=== PATIENT | female | born 1935 | race Caucasian/White ===

== ENCOUNTER → 2016-04-24 | Outpatient (CLI) | payer MEDICARE | LOC: M ONCR 14:07 | PROVIDERS: ATTEND Radiology Radiation Oncology | DX: C50.111 Malignant neoplasm of central portion of right female breast (principal) ==

== ENCOUNTER → 2016-04-29 | Outpatient (CLI) | payer MEDICARE ==
--- NOTE | 2016-04-29 12:04 | REP ---
WHOLE BODY RADIONUCLIDE BONE SCAN: History: Breast carcinoma. Follow-up. Comparison three-phase bone scan is from June 19, 2015 with imaging of the knees. Technique: 21.6 mCi technetium 99m MDP is injected and standard whole body bone scan imaging is acquired. Scintigraphic findings: There is a diffuse pattern of increased uptake in the soft tissues of the right breast in this patient with history of breast cancer treated with radiation therapy. There is arthritic uptake in each wrist. There is arthritic uptake in the right knee and in both mid foot joints. A left knee arthroplasty is visible. There is uptake in bilateral kidneys and some degenerative disc uptake is seen in the thoracic and lumbar spine. There is no evidence to suggest skeletal metastatic disease. Impression: No evidence of bony metastatic disease. Signed by Christian Steel MD 04/29/2016 01:12 P
== END ==
LOC: M RAD 08:08
PROVIDERS: ATTEND Radiology Radiation Oncology
DX: C50.919 Malignant neoplasm of unspecified site of unspecified female breast (principal); R07.82 Intercostal pain
CPT/HCPCS: 78306; A9503

== ENCOUNTER → 2016-07-17 | Outpatient (CLI) | payer MEDICARE ==
--- NOTE | 2016-07-24 06:02 | RADONC ---
RADIATION ONCOLOGY FOLLOWUP NOTE DATE: 07/17/2016 CHART NUMBER: [id number]. DIAGNOSIS: Right breast cancer. STAGE: IA, [id number]. ECOG PERFORMANCE STATUS: 0. FOLLOWUP NOTE: Ms. 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 The patient presents today reporting that generally she is doing well with no complaints at this time related to her radiation therapy. She reports that she did have some type of stomach flu and recently. REVIEW OF SYSTEMS: The patient's review of systems is noncontributory. Denies nausea, vomiting, fevers, chills, night sweats, diplopia, headaches, anxiety or depression, anorexia, weight loss, visual disturbances, chest pain, urinary or bowel difficulties, bone pain, or neurological problems. PHYSICAL EXAMINATION: The patient is a well-developed, well-nourished, 81-year-old white female in no acute distress. HEENT exam is normocephalic, atraumatic. Extraocular movements are intact. There is no palpable cervical, supraclavicular, infraclavicular, axillary, or inguinal lymphadenopathy present. Lungs are clear to auscultation and percussion. Heart has a regular rate and rhythm. Abdomen is benign with no hepatosplenomegaly, masses, or tenderness. Breast examination reveals no masses or discharge bilaterally. Skeletal examination reveals no tenderness to pressure or percussion of the bony skeleton. Extremities reveal no clubbing, cyanosis, or edema. Neurologic exam is grossly intact, as is the remainder of the physical examination. ASSESSMENT: The patient is clinically JEOVANNY at this time and will be seen by us again in 6 months for further followup. She will also continue to be followed by her other physicians as well. cc: MD Abrahan Silverman MD Laverne VanDeWall, DO
== END ==
LOC: M ONCR 14:40
PROVIDERS: ATTEND Radiology Radiation Oncology
DX: C50.111 Malignant neoplasm of central portion of right female breast (principal)

== ENCOUNTER → 2016-08-05 | Outpatient (CLI) | payer MEDICARE ==
--- NOTE | 2016-08-05 10:22 | REP ---
Digital screening bilateral mammography with CAD: History: Personal history of breast carcinoma right breast treated with lumpectomy and radiation therapy. Status post benign stereotactic biopsy left breast. Comparison is made with the prior mammograms, the most recent of which is from June 12, 2015. Findings: Post-treatment changes are seen in the right breast with diffuse stromal thickening and diffuse skin thickening post radiation and surgery. There is an area of postoperative fibrosis at approximately 12 o'clock in the right breast. There is vascular calcification and scattered benign calcifications on the right. On the left, there is a needle biopsy marker clip projecting also at approximately 12 o'clock. The previously noted microcalcific grouping is no longer apparent. Vascular calcification is seen. No suspicious left breast abnormality is observed. Impression: BIRADS category II benign bilateral breast imaging. Post-treatment changes are noted on the right. Repeat screening mammography recommended in 1 year. BI-RADS/ACR category 2 mammogram. Benign finding(s). Routine annual screening mammography (for women over age 40). This mammogram was interpreted with the aid of an FDA-approved computer-aided detection system. The patient states she had a clinical breast exam in June 2016 The patient letter being requested is M2. Signed by Christian Steel MD 08/05/2016 12:08 P
== END ==
LOC: M RAD 08:23
PROVIDERS: ATTEND Radiology Radiation Oncology
DX: Z12.31 Encounter for screening mammogram for malignant neoplasm of breast (principal); Z85.3 Personal history of malignant neoplasm of breast

== ENCOUNTER → 2017-01-15 | Outpatient (CLI) | payer MEDICARE ==
--- NOTE | 2017-01-16 10:01 | RADONC ---
RADIATION ONCOLOGY FOLLOWUP NOTE DATE: 01/15/2017 CHART NUMBER: [id number] DIAGNOSIS: Right breast cancer. STAGE: IA, [id number]. ECOG PERFORMANCE STATUS: 0 FOLLOWUP NOTE: Ms. 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 The patient presents today reporting that she is doing quite well with no complaints at this time related to her radiation therapy or disease. She has no breast or bone pain. REVIEW OF SYSTEMS: The patient's review of systems is noncontributory. She denies nausea, vomiting, fevers, chills, night sweats, diplopia, headaches, anxiety or depression, anorexia, weight loss, visual disturbances, chest pain, urinary or bowel difficulties, bone pain, or neurological problems. PHYSICAL EXAMINATION: The patient is a well-developed, well-nourished white female in no acute distress. HEENT exam is normocephalic, atraumatic. Extraocular movements are intact. There is no palpable cervical, supraclavicular, infraclavicular, axillary, or inguinal lymphadenopathy present. Lungs are clear to auscultation and percussion. Heart has a regular rate and rhythm. Abdomen is benign with no hepatosplenomegaly, masses, or tenderness. Breast examination reveals no masses or discharge bilaterally. Skeletal examination reveals no tenderness to pressure or percussion of the bony skeleton. Extremities reveal no clubbing, cyanosis, or edema. Neurologic exam is grossly intact, as is the remainder of the physical examination. ASSESSMENT: The patient is clinically JEOVANNY at this time and will be seen by me again in 6 months for further followup. She will also continue to be followed by her other physicians as well. cc: Radha Pollock MD, FACP MD Ashley Samuels DO
== END ==
LOC: M ONCR 14:07
PROVIDERS: ATTEND Radiology Radiation Oncology
DX: C50.111 Malignant neoplasm of central portion of right female breast (principal)

== ENCOUNTER → 2017-08-01 | Outpatient (CLI) | payer MEDICARE | LOC: M ONCR 14:29 | DX: C50.111 Malignant neoplasm of central portion of right female breast (principal) | CPT/HCPCS: G0463 ==

== ENCOUNTER → 2018-04-01 | Outpatient (CLI) | payer MEDICARE | LOC: M ONCR 14:10 | DX: C50.111 Malignant neoplasm of central portion of right female breast (principal) | CPT/HCPCS: G0463 ==

== ENCOUNTER → 2018-09-02 | Outpatient (CLI) | payer MEDICARE ==
--- NOTE | 2018-09-03 08:18 | RADONC ---
RADIATION ONCOLOGY FOLLOWUP NOTE DATE: 09/02/2018 CHART NUMBER: [id number] DIAGNOSIS: Right breast cancer. STAGE: I A, [id number]. ECOG PERFORMANCE STATUS: 0 FOLLOWUP: Mrs. 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 She presents to us today for a routine followup visit 3 years and 4 months status post completion of external beam radiotherapy. She continues to do quite well and has no complaints referable to her disease or to her treatments. REVIEW OF SYSTEMS: She specifically denies any nausea, vomiting, coughing, sputum production, hemoptysis, breast or bone pain. Her energy level is such that she is able to maintain many day-to-day activities. She denies any skin issues at the current time. She also denies anxiety, depression, anorexia, weight loss, visual disturbances, chest pain, urinary or bowel problems, or neurologic issues. PHYSICAL EXAMINATION: Reveals a well-nourished female in no acute distress. HEENT: Normocephalic. EOMs intact. PERRLA. Fundi benign. Lungs: Clear. Heart: Regular without murmurs. Abdomen: Without evidence of hepatomegaly, masses, deep abdominal tenderness. The examination of the breasts reveal some subcutaneous fibrosis involving the right breast, which is the breast, which was treated. No masses are palpable bilaterally. Skeletal system reveals no evidence of percussive tenderness. Extremities: Without cyanosis, clubbing or edema. Neurologic: Examination grossly physiologic and nonfocal. IMPRESSION: Clinically JEOVANNY with no evidence of tumor recurrence. PLAN: We have asked her to return in approximately 1 year and she was encouraged to return to her referring physicians as per their directions and instructions. cc: Radha Pollock MD, FACP MD Ashley Samuels DO
== END ==
LOC: M ONCR 12:51
PROVIDERS: ATTEND Radiology Radiation Oncology
DX: Z85.3 Personal history of malignant neoplasm of breast (principal); Z92.3 Personal history of irradiation

== ENCOUNTER 2018-12-29 20:07 | Inpatient (IN) | payer MEDICARE ==
--- NOTE | 2018-12-29 20:59 | REPVR ---
EXAM: CT Head Without Contrast EXAM DATE/TIME: 12/29/2018 8:47 PM CLINICAL HISTORY: 83 years old, female; Weakness, extremity; Left; Additional info: Leaning to the left/? Stroke TECHNIQUE: Imaging protocol: Computed tomography of the head without contrast. Radiation optimization: All CT scans at this facility use at least one of these dose optimization techniques: automated exposure control; mA and/or kV adjustment per patient size (includes targeted exams where dose is matched to clinical indication); or iterative reconstruction. Other technique: STROKE PROTOCOL was implemented. COMPARISON: No relevant prior studies available. FINDINGS: Brain: There is volume loss. There is white matter lucency consistent with chronic microvascular disease. There is no acute infarct. There is no hemorrhage or extra-axial collection. There is no mass. Ventricles: Normal. No ventriculomegaly. Bones/joints: Unremarkable. No acute fracture. Sinuses: There are left maxillary sinus retention cysts. No air-fluid levels. Mastoid air cells: The left mastoid is poorly pneumatized. There is a small amount of fluid in the left mastoids. Soft tissues: Unremarkable. IMPRESSION: 1. There is chronic microvascular disease. 2. There is no acute lesion or injury. ASSESSMENT: ASPECTS ([place] Stroke Program Early CT Score) is 10 Electronically signed by: Jae Meza On 12/29/2018 20:59:08 PM
[2018-12-29] MEDS ORDERED: ATORVASTATIN 20 MG TAB PO SCH (21:00)
[2018-12-29] MEDS ORDERED: LABETALOL HCL 100 MG/20 ML VIAL IV STA (21:11)
[2018-12-29] MEDS ORDERED: LABETALOL HCL 100 MG/20 ML VIAL As Ordered ONE (21:12)
[2018-12-29 21:13] LABS: BASO # 0.1 10^3/uL (0.0-0.2); BASO % 0.4 % (0.0-1.0); EOS # 0.1 10^3/uL (0.0-0.5); EOS % 0.7 % (0.0-3.0); HEMATOCRIT 48.3 % (36.0-47.0); HEMOGLOBIN 15.7 g/dl (12.0-15.5); LYMPH # 1.7 10^3/uL (1.5-5.0); MEAN CORPUSCULAR HEMOGLOBIN 29.1 pg (27.0-33.0); MEAN CORPUSCULAR HGB CONC 32.5 g/dl (32.0-36.5); MEAN CORPUSCULAR VOLUME 89.6 fl (80.0-96.0); MONO # 0.6 10^3/uL (0.0-0.8); MONO % 4.3 % (0.0-5.0); NEUTROPHILS # 11.3 10^3/uL (1.5-8.5); PLATELET COUNT, AUTOMATED 235 10^3/uL (150-450); RED BLOOD COUNT 5.39 10^6/uL (4.00-5.40); WHITE BLOOD COUNT 13.8 10^3/uL (4.0-10.0)
[2018-12-29 21:23] LABS: ALBUMIN 3.8 GM/DL (3.2-5.2); ALT/SGPT 19 U/L (12-78); BILIRUBIN,DIRECT 0.1 MG/DL (0.0-0.2); BILIRUBIN,TOTAL 0.5 MG/DL (0.2-1.0); BLOOD UREA NITROGEN 18 MG/DL (7-18); CALCIUM LEVEL 9.3 MG/DL (8.8-10.2); CARBON DIOXIDE LEVEL 26 MEQ/L (21-32); CHLORIDE LEVEL 103 MEQ/L (98-107); CK-MB VALUE MASS 1.6 NG/ML (<3.6); CPK CREATINE PHOSPHOKINASE 70 U/L (26-192); CREATININE FOR GFR 0.78 MG/DL (0.55-1.30); GLOMERULAR FILTRATION RATE > 60.0 (>32); GLUCOSE, FASTING 186 MG/DL (70-100); LIPASE 92 U/L (73-393); MB/CK RELATIVE INDEX 2.29 (< OR =4); POTASSIUM SERUM 3.6 MEQ/L (3.5-5.1); SODIUM LEVEL 138 MEQ/L (136-145); TOTAL PROTEIN 8.1 GM/DL (6.4-8.2); TROPONIN I < 0.02 NG/ML (< 0.10)
[2018-12-29 21:30] LABS: INR 1.14; PROTHROMBIN TIME 14.3 SECONDS (11.8-14.0)
[2018-12-29] MEDS ORDERED: MORPHINE 4 MG/ML 1ML VIAL/SYRINGE (J2270) IV ONE (21:45)
--- NOTE | 2018-12-29 22:25 | REPVR ---
EXAM: US Duplex Bilateral Lower Extremity Veins EXAM DATE/TIME: 12/29/2018 10:18 PM CLINICAL HISTORY: 83 years old, female; Pain; Leg, lower; Bilateral; Additional info: Bilat low ext pain R/O dvt TECHNIQUE: Imaging protocol: Real-time duplex ultrasound of the Bilateral Lower Extremities with 2-D kaminski scale, color Doppler flow and spectral waveform analysis with image documentation. Complete exam focused on the bilateral lower extremity veins. COMPARISON: No relevant prior studies available. FINDINGS: Right deep veins: Unremarkable. The common femoral, femoral, proximal profunda femoral and popliteal veins are patent without thrombus. Normal Doppler waveforms. Normal compressibility and/or augmentation response. Left deep veins: Unremarkable. The common femoral, femoral, proximal profunda femoral and popliteal veins are patent without thrombus. Normal Doppler waveforms. Normal compressibility and/or augmentation response. Soft tissues: Unremarkable. IMPRESSION: No acute findings. No evidence of deep vein thrombosis. Electronically signed by: Jae Meza On 12/29/2018 22:24:53 PM
[2018-12-29] MEDS ORDERED: cefTRIAXone SOD 1 GM in D5W MINI-BAG PLUS 50 ML IV ONE (22:30)
[2018-12-29] MEDS ORDERED: OMEP-221 PO (22:55)
[2018-12-29] MEDS ORDERED: FENT1DIS14 TD (22:55)
[2018-12-29] MEDS ORDERED: CRES5TAB PO (22:55)
[2018-12-29] MEDS ORDERED: GABA600T4 PO (22:55)
[2018-12-29] MEDS ORDERED: HYDR-4571 PO (22:55)
[2018-12-29] MEDS ORDERED: FURO20TA2 PO (22:55)
[2018-12-29] MEDS ORDERED: JANU100T PO (22:55)
[2018-12-29] MEDS ORDERED: VENL75CA47 PO (22:55)
[2018-12-29] MEDS ORDERED: MYRB50TA PO (22:55)
[2018-12-29] MEDS ORDERED: LISI10TA4 PO (22:55)
[2018-12-29] MEDS ORDERED: POTA10CA32 PO (22:55)
[2018-12-29] MEDS ORDERED: KEFL250C11 PO (22:55)
[2018-12-30] MEDS ORDERED: HumaLOG INSULIN (NovoLOG) PER UNIT SC SCH
--- NOTE | 2018-12-30 00:03 | REPVR ---
EXAM: MR Head Without Contrast EXAM DATE/TIME: 12/29/2018 11:31 PM CLINICAL HISTORY: 83 years old, female; Speech disturbance and weakness, extremity; Slurred speech; Patient HX: PT states left arm weakness and difficulty speaking; Additional info: CVA TECHNIQUE: Imaging protocol: MR of the head without contrast. COMPARISON: CT Head without contrast 12/29/2018 8:44 PM FINDINGS: Brain: There is increased signal in the periventricular white matter. There are a few additional small hyperintense foci within the white matter. DWI images demonstrate an extensive acute infarct in the left posterior inferior cerebellar artery. This extends over a length of 3.5 cm. There is a smaller acute right posterior inferior cerebellar infarct. There are additional small acute infarcts elsewhere within the cerebellum including the cerebellar vermis. There are also small acute occipital cortical infarcts. These are seen bilaterally and measuring up to 8 mm. Gradient echo images demonstrate no evidence of hemorrhage. There is no extra-axial collection. There is no mass. Ventricles: Normal. No ventriculomegaly. Bones/joints: Unremarkable. Soft tissues: Normal. Sinuses: Trace of fluid in the left maxillary sinus. Mastoid air cells: Normal as visualized. No mastoid effusion. Orbits: Unremarkable. IMPRESSION: Large acute bilateral cerebellar infarcts, more extensive on the left. There also small bilateral occipital infarcts. Electronically signed by: Jae Meza On 12/30/2018 00:02:55 AM
--- NOTE | 2018-12-30 00:03 | REPVR ---
EXAM: MR Angiogram Head Without Contrast, Arteries EXAM DATE/TIME: 12/29/2018 11:31 PM CLINICAL HISTORY: 83 years old, female; Speech disturbance and weakness; Slurred speech; Patient HX: PT states left arm weakness and difficulty speaking. ; Additional info: CVA TECHNIQUE: Imaging protocol: MR angiogram head without contrast. Exam focused on the arteries. 3D rendering: MIP reconstructed images were created and reviewed. COMPARISON: CT Head without contrast 12/29/2018 8:44 PM FINDINGS: Right internal carotid artery: Unremarkable. Intracranial segment is patent with no significant stenosis. No aneurysm. Right anterior cerebral artery: Unremarkable. No occlusion or significant stenosis. No aneurysm. Right middle cerebral artery: Unremarkable. No occlusion or significant stenosis. No aneurysm. Right posterior cerebral artery: Unremarkable. No occlusion or significant stenosis. No aneurysm. Right vertebral artery: Unremarkable. No occlusion or significant stenosis. No aneurysm. Left internal carotid artery: Unremarkable. Intracranial segment is patent with no significant stenosis. No aneurysm. Left anterior cerebral artery: Unremarkable. No occlusion or significant stenosis. No aneurysm. Left middle cerebral artery: Unremarkable. No occlusion or significant stenosis. No aneurysm. Left posterior cerebral artery: Unremarkable. No occlusion or significant stenosis. No aneurysm. 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 Basilar artery: Unremarkable. No occlusion or significant stenosis. No aneurysm. Other vascular: Neither posterior inferior cerebellar artery is identified. Visualization of these vessels is variable on MRA. IMPRESSION: Complete occlusion of the left vertebral artery. Electronically signed by: Jae Meza On 12/30/2018 00:03:05 AM
[2018-12-30 00:10] VITALS: BP 192/110
--- NOTE | 2018-12-30 00:44 | HPEPDOC ---
General Date of Admission 12/30/18 Date of Service: Dec 30, 2018 Primary Care Physician: Jessie Cardenas Attending Physician: RONEN SHANKS DO Chief Complaint The patient is a 83-year-old female admitted with a reason for visit of SOB. History of Present Illness Patient is 83 years old female with past mental history of hypertension, hyperlipidemia, diabetes mellitus presented hospital with altered mental status. According to her daughter patient did have 2 days nausea, vomiting, diarrhea associated with headache. Today early in the morning around 8 am patient developed altered mental status with left arm weakness, slurred speech and difficulties to understand questions. In emergency room patient was found to have complete occlusion of the left vertebral artery on MRA, brain MRI showed large acute bilateral cerebellar infarcts, more extensive on the left. There are also small bilateral occipital infarcts. Also patient was found to have elevated blood pressure with systolic blood pressure around 210. Patient received treatment with labetalol. Home Medications Scheduled Cephalexin (Keflex) 250 Mg Capsule, 250 MG PO DAILY, (Reported) Fentanyl (Fentanyl) 25 Mcg Patch.td72, 25 MCG TD Q3RD, (Reported) Gabapentin (Gabapentin) 600 Mg Tablet, 600 MG PO TID, (Reported) Lisinopril (Lisinopril) 10 Mg Tablet, 10 MG PO DAILY, (Reported) Mirabegron (Myrbetriq) 50 Mg Tab.er.24h, 50 MG PO DAILY, (Reported) Omeprazole (Omeprazole) 40 Mg Capsule.dr, 40 MG PO DAILY, (Reported) Potassium Chloride (Potassium Chloride) 10 Meq Capsule.er, 20 MEQ PO DAILY, (Reported) Rosuvastatin Calcium (Crestor) 5 Mg Tablet, 5 MG PO QHS, (Reported) Sitagliptin Phosphate (Januvia) 100 Mg Tablet, 100 MG PO DAILY, (Reported) Venlafaxine HCl (Venlafaxine HCl ER) 75 Mg Cap.er.24h, 75 MG PO DAILY, (Reported) Scheduled PRN Furosemide (Furosemide) 20 Mg Tablet, 20 MG PO DAILY PRN for SWELLING, (Reported) Hydrocodone/Acetaminophen (Hydrocodone-Acetamin 5-325 mg) 1 Each Tablet, 1 TAB PO BID PRN for PAIN, (Reported) Allergies Coded Allergies: Sulfa (Sulfonamide Antibiotics) (Verified Allergy, Mild, Rash, 12/29/18) aspirin (Verified Adverse Reaction, Mild, GI Upset, 12/29/18) Past Medical History Medical History Hypertension, hyperlipidemia, diabetes mellitus, chronic back pain, chronic UTI Family History Father had stroke Social History * Smoker: Denies Alcohol: Denies Drugs: denies Psychosocial History: No pertinent psych hx A-FIB/CHADSVASC A-FIB History Current/History of A-Fib/PAF?: No Current PO Anticoag Therapy: No Review of Systems Constitutional: Denies: Chills, Fever Eyes: Reports: Vision change; Denies: Pain ENT: Reports: Head Aches Skin: Denies: Rash, Lesions Pulmonary: Denies: Dyspnea, Cough Cardiovascular: Denies: Chest Pain, Palpitations Gastrointestinal: Denies: Nausea, Vomiting Genitourinary: Reports: Dysuria Hematologic: Denies: Bruising, Bleeding Excessively Endocrine: Denies: Polydipsia, Polyphagia Musculoskeletal: Reports: Back Pain Neurological: Reports: Weakness (left arm and left leg), Incoordination, Change in speech (slowness of his speech), Confusion Psych: Reports: Mood Normal Physical Examination General Exam: Positive: Mild Distress Eye Exam: Positive: Other Eye Symptoms (bilateral horizontal nystagmus, asymmetry in eyes lateral movement) ENT Exam: Positive: Atraumatic, Pharynx Normal Neck Exam: Positive: Supple; Negative: JVD Chest Exam: Positive: Clear to auscultation Heart Exam: Positive: Tachycardic Abdomen Exam: Positive: Normal bowel sounds Extremity Exam: Negative: Clubbing, Cyanosis Skin Exam: Negative: Nl turgor and temperature Neuro Exam: Positive: Other (deficiency in the cranial nerve III and IV, left arm weakness 3/5 and left leg weakness 2/5) Psych Exam: Positive: Other (confused with slurred speech) Vital Signs Vital Signs Date Time Temp Pulse Resp B/P (MAP) Pulse Ox O2 Delivery O2 Flow Rate FiO2 12/29/18 22:45 97 20 195/91 (125) 95 Room Air 12/29/18 20:18 96.8 Laboratory Data Labs 24H Laboratory Tests 2 12/29/18 20:41: Immature Granulocyte % (Auto) 0.6, White Blood Count 13.8H, Red Blood Count 5.39, Hemoglobin 15.7H, Hematocrit 48.3H, Mean Corpuscular Volume 89.6, Mean Corpuscular Hemoglobin 29.1, Mean Corpuscular Hemoglobin Concent 32.5, Red Cell Distribution Width 14.2, Platelet Count 235, Neutrophils (%) (Auto) 82.0H, Lymphocytes (%) (Auto) 12.0L, Monocytes (%) (Auto) 4.3, Eosinophils (%) (Auto) 0.7, Basophils (%) (Auto) 0.4, Neutrophils # (Auto) 11.3H, Lymphocytes # (Auto) 1.7, Monocytes # (Auto) 0.6, Eosinophils # (Auto) 0.1, Basophils # (Auto) 0.1, Nucleated Red Blood Cells % (auto) 0.0, Prothrombin Time 14.3H, Prothromb Time International Ratio 1.14, Activated Partial Thromboplast Time 25.0, Anion Gap 9, Glomerular Filtration Rate > 60.0, Calcium Level 9.3, Aspartate Amino Transf (AST/SGOT) 23, Alanine Aminotransferase (ALT/SGPT) 19, Alkaline Phosphatase 113, Total Bilirubin 0.5, Direct Bilirubin 0.1, Total Creatine Kinase 70, Creatine Kinase MB 1.6, Creatine Kinase MB Relative Index 2.29, Troponin I < 0.02, Total Protein 8.1, Albumin 3.8, Albumin/Globulin Ratio 0.88L, Lipase 92 12/29/18 21:53: Urine Color YELLOW, Urine Appearance CLEAR, Urine pH 6.0, Urine Specific [place] 1.017, Urine Protein NEGATIVE, Urine Glucose (UA) 1+H, Urine Ketones 2+H, Urine Blood 1+H, Urine Nitrite POSITIVEH, Urine Bilirubin NEGATIVE, Urine Urobilinogen 0.2, Urine Leukocyte Esterase NEGATIVE, Urine WBC (Auto) 3, Urine RBC (Auto) 2, Urine Hyaline Casts (Auto) 0, Urine Bacteria (Auto) 2+H, Urine Squamous Epithelial Cells 1, Urine Mucus (Auto) SMALL, Urine Sperm (Auto) CBC/BMP Laboratory Tests 12/29/18 20:41 Red Blood Count 5.39, Mean Corpuscular Volume 89.6, Mean Corpuscular Hemoglobin 29.1, Mean Corpuscular Hemoglobin Concent 32.5, Red Cell Distribution Width 14 .2, Neutrophils (%) (Auto) 82.0 H, Lymphocytes (%) (Auto) 12.0 L, Monocytes (%) (Auto) 4.3, Eosinophils (%) (Auto) 0.7, Basophils (%) (Auto) 0.4, Neutrophils # (Auto) 11.3 H, Lymphocytes # (Auto) 1.7, Monocytes # (Auto) 0.6, Eosinophils # (Auto) 0.1, Basophils # (Auto) 0.1 Microbiology Microbiology 12/29/18 Urine Culture, Received Pending Assessment/Plan Patient is 83 years old female with past mental history of hypertension, hyperlipidemia, diabetes mellitus presented hospital with altered mental status. According to her daughter patient did have 2 days nausea, vomiting, diarrhea associated with headache. Today early in the morning patient developed altered mental status with left arm weakness, slurred speech and difficulties to understand questions. In emergency room patient was found to have complete occlusion of the left vertebral artery on MRA, brain MRI showed large acute bilateral cerebellar infarcts, more extensive on the left. There are also small bilateral occipital infarcts. Also patient was found to have elevated blood pressure with systolic blood pressure around 210. Patient received treatment with labetalol Problems (1) CVA (cerebral vascular accident) Problem Text: I talked to DR. Mota , he recommended transfer to [facility]. There is high risk of brain swelling and herniation. Speech evaluation, nothing by mouth for now Aspiration precaution Aspirin per rectum Echo (2) Left-sided weakness Status: Acute Problem Text: Secondary to stroke See above (3) Hypertensive urgency Status: Acute Problem Text: Labetalol 10 mg when necessary with parameters Careful monitoring BP, will keep BP in the range 160 -180 for the next 12 h Continue home meds (4) Urinary tract infection Status: Acute Problem Text: Patient has chronic UTI, PCP prescribed cephalexin as a prophylaxis Continue cephalexin Plan / VTE VTE Prophylaxis Ordered?: Yes RONEN SHANKS DO Dec 30, 2018 00:44
[2018-12-30] MEDS ORDERED: VENLAFAXINE 37.5 MG TAB PO ONE (00:45)
[2018-12-30] MEDS ORDERED: FUROSEMIDE 20 MG TAB PO PRN (00:45)
[2018-12-30] MEDS ORDERED: FENTANYL REMOVAL DOCUMENTATION MISC XX SCH (00:45)
[2018-12-30] MEDS ORDERED: NS 1,000 ML IV SCH (00:50)
[2018-12-30] MEDS ORDERED: LABETALOL HCL 100 MG/20 ML VIAL IV STA (00:52)
[2018-12-30] MEDS ORDERED: DEXTROSE 50% 50 ML SYRINGE IV PRN (01:30)
[2018-12-30] MEDS ORDERED: GLUCOSE 4 GM CHEW TABLET PO PRN (01:30)
[2018-12-30] MEDS ORDERED: GLUCAGON FOR INJ 1 MG VIAL (J1610) SC PRN (01:30)
[2018-12-30] MEDS ORDERED: MORPHINE 4 MG/ML 1ML VIAL/SYRINGE (J2270) IV PRN (02:45)
[2018-12-30 03:55] VITALS: BP 198/110
--- NOTE | 2018-12-30 04:10 | DS.PDOC ---
Discharge Summary General Date of Admission Dec 30, 2018 at 00:22 Date of Discharge 01/29/19 Primary Care Physician: Jessie Cardenas Attending Physician: RONEN SHANKS DO Discharge Summary PROCEDURES PERFORMED DURING STAY: None ADMITTING DIAGNOSES: CVA Left-sided weakness Hypertensive urgency DISCHARGE DIAGNOSES: CVA Left-sided weakness Hypertensive urgency COMPLICATIONS/CHIEF COMPLAINT: Cva,Hypertensive Urgency. HISTORY OF PRESENT ILLNESS: Patient is 83 years old female with past mental history of hypertension, hyperlipidemia, diabetes mellitus presented hospital with altered mental status. According to her daughter patient did have 2 days nausea, vomiting, diarrhea associated with headache. Today early in the morning patient developed altered mental status with left arm weakness, slurred speech and difficulties to understand questions. In emergency room patient was found to have complete occlusion of the left vertebral artery on MRA, brain MRI showed large acute bilateral cerebellar infarcts, more extensive on the left. There are also small bilateral occipital infarcts. Also patient was found to have elevated blood pressure with systolic blood pressure around 210. Patient received treatment with labetalol HOSPITAL COURSE: I talked to DR. Mota , he recommended transfer to [facility]. There is high risk of brain swelling and herniation. DISCHARGE MEDICATIONS: Please see below. ALLERGIES: Please see below. PHYSICAL EXAMINATION ON DISCHARGE: VITAL SIGNS: Please see below. General Exam: Positive: Mild Distress Eye Exam: Positive: Other Eye Symptoms (bilateral horizontal nystagmus, asymmetry in eyes lateral movement) ENT Exam: Positive: Atraumatic, Pharynx Normal Neck Exam: Positive: Supple; Negative: JVD Chest Exam: Positive: Clear to auscultation Heart Exam: Positive: Tachycardic Abdomen Exam: Positive: Normal bowel sounds Extremity Exam: Negative: Clubbing, Cyanosis Skin Exam: Negative: Nl turgor and temperature Neuro Exam: Positive: Other (deficiency in the cranial nerve III and IV, left arm weakness 3/5 and left leg weakness 2/5) Psych Exam: Positive: Other (confused with slurred speech) LABORATORY DATA: Please see below. IMAGING: THIS REPORT CONTAINS FINDINGS THAT MAY BE CRITICAL TO PATIENT CARE. The findings were verbally communicated via telephone conference with Dr Arreola 12:14 AM EDT on 12/30/2018. The findings were acknowledged and understood. Electronically signed by: Jae Mota On 12/30/2018 00:15:39 AM DD: JAE MOTA MD 12/29/18 2331 DT: RAY 12/30/18 0015 DS: ANNAMARIA 12/30/18 0015 EXAM: MR Angiogram Head Without Contrast, Arteries EXAM DATE/TIME: 12/29/2018 11:31 PM CLINICAL HISTORY: 83 years old, female; Speech disturbance and weakness; Slurred speech; Patient HX: PT states left arm weakness and difficulty speaking. ; Additional info: CVA TECHNIQUE: Imaging protocol: MR angiogram head without contrast. Exam focused on the arteries. 3D rendering: MIP reconstructed images were created and reviewed. COMPARISON: CT Head without contrast 12/29/2018 8:44 PM FINDINGS: Right internal carotid artery: Unremarkable. Intracranial segment is patent with no significant stenosis. No aneurysm. Right anterior cerebral artery: Unremarkable. No occlusion or significant stenosis. No aneurysm. Right middle cerebral artery: Unremarkable. No occlusion or significant stenosis. No aneurysm. Right posterior cerebral artery: Unremarkable. No occlusion or significant stenosis. No aneurysm. Right vertebral artery: Unremarkable. No occlusion or significant stenosis. No aneurysm. Left internal carotid artery: Unremarkable. Intracranial segment is patent with no significant stenosis. No aneurysm. Left anterior cerebral artery: Unremarkable. No occlusion or significant stenosis. No aneurysm. Left middle cerebral artery: Unremarkable. No occlusion or significant stenosis. No aneurysm. Left posterior cerebral artery: Unremarkable. No occlusion or significant stenosis. No aneurysm. 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 Basilar artery: Unremarkable. No occlusion or significant stenosis. No aneurysm. Other vascular: Neither posterior inferior cerebellar artery is identified. Visualization of these vessels is variable on MRA. IMPRESSION: Complete occlusion of the left vertebral artery. Electronically signed by: Jae Mota On 12/30/2018 00:03:05 AM PROGNOSIS: guarded ACTIVITY: As tolerated DIET: npo DISCHARGE PLAN: DIAMANTE DISPOSITION: 02 Xfer To Acute Hosp. DISCHARGE CONDITION: stable TIME SPENT ON DISCHARGE: Greater than 25 minutes. Vital Signs/I&Os Vital Signs Date Time Temp Pulse Resp B/P (MAP) Pulse Ox O2 Delivery O2 Flow Rate FiO2 12/30/18 03:55 97.0 103 20 198/110 (139) 95 Room Air Laboratory Data Labs 24H Laboratory Tests 2 12/29/18 20:41: Immature Granulocyte % (Auto) 0.6, White Blood Count 13.8H, Red Blood Count 5 .39, Hemoglobin 15.7H, Hematocrit 48.3H, Mean Corpuscular Volume 89.6, Mean Corpuscular Hemoglobin 29.1, Mean Corpuscular Hemoglobin Concent 32.5, Red Cell Distribution Width 14.2, Platelet Count 235, Neutrophils (%) (Auto) 82.0H, Lymphocytes (%) (Auto) 12.0L, Monocytes (%) (Auto) 4.3, Eosinophils (%) (Auto) 0.7, Basophils (%) (Auto) 0.4, Neutrophils # (Auto) 11.3H, Lymphocytes # (Auto) 1.7, Monocytes # (Auto) 0.6, Eosinophils # (Auto) 0.1, Basophils # (Auto) 0.1, Nucleated Red Blood Cells % (auto) 0.0, Prothrombin Time 14.3H, Prothromb Time International Ratio 1.14, Activated Partial Thromboplast Time 25.0, Anion Gap 9, Glomerular Filtration Rate > 60.0, Calcium Level 9.3, Aspartate Amino Transf (AST/SGOT) 23, Alanine Aminotransferase (ALT/SGPT) 19, Alkaline Phosphatase 113, Total Bilirubin 0.5, Direct Bilirubin 0.1, Total Creatine Kinase 70, Creatine Kinase MB 1.6, Creatine Kinase MB Relative Index 2.29, Troponin I < 0.02, Total Protein 8.1, Albumin 3.8, Albumin/Globulin Ratio 0.88L, Lipase 92 12/29/18 21:53: Urine Color YELLOW, Urine Appearance CLEAR, Urine pH 6.0, Urine Specific [place] 1.017, Urine Protein NEGATIVE, Urine Glucose (UA) 1+H, Urine Ketones 2+H, Urine Blood 1+H, Urine Nitrite POSITIVEH, Urine Bilirubin NEGATIVE, Urine Urobilinogen 0.2, Urine Leukocyte Esterase NEGATIVE, Urine WBC (Auto) 3, Urine RBC (Auto) 2, Urine Hyaline Casts (Auto) 0, Urine Bacteria (Auto) 2+H, Urine Squamous Epithelial Cells 1, Urine Mucus (Auto) SMALL, Urine Sperm (Auto) CBC/BMP Laboratory Tests 12/29/18 20:41 Red Blood Count 5.39, Mean Corpuscular Volume 89.6, Mean Corpuscular Hemoglobin 29.1, Mean Corpuscular Hemoglobin Concent 32.5, Red Cell Distribution Width 14.2, Neutrophils (%) (Auto) 82.0 H, Lymphocytes (%) (Auto) 12.0 L, Monocytes (%) (Auto) 4.3, Eosinophils (%) (Auto) 0.7, Basophils (%) (Auto) 0.4, Neutrophils # (Auto) 11.3 H, Lymphocytes # (Auto) 1.7, Monocytes # (Auto) 0.6, Eosinophils # (Auto) 0.1, Basophils # (Auto) 0.1 Microbiology Microbiology 12/29/18 Urine Culture, Received Pending Discharge Medications Scheduled Cephalexin (Keflex) 250 Mg Capsule, 250 MG PO DAILY, (Reported) Fentanyl (Fentanyl) 25 Mcg Patch.td72, 25 MCG TD Q3RD, (Reported) Gabapentin (Gabapentin) 600 Mg Tablet, 600 MG PO TID, (Reported) Lisinopril (Lisinopril) 10 Mg Tablet, 10 MG PO DAILY, (Reported) Mirabegron (Myrbetriq) 50 Mg Tab.er.24h, 50 MG PO DAILY, (Reported) Omeprazole (Omeprazole) 40 Mg Capsule.dr, 40 MG PO DAILY, (Reported) Potassium Chloride (Potassium Chloride) 10 Meq Capsule.er, 20 MEQ PO DAILY, (Reported) Rosuvastatin Calcium (Crestor) 5 Mg Tablet, 5 MG PO QHS, (Reported) Sitagliptin Phosphate (Januvia) 100 Mg Tablet, 100 MG PO DAILY, (Reported) Venlafaxine HCl (Venlafaxine HCl ER) 75 Mg Cap.er.24h, 75 MG PO DAILY, (Repor viola) Scheduled PRN Furosemide (Furosemide) 20 Mg Tablet, 20 MG PO DAILY PRN for SWELLING, (Reported) Hydrocodone/Acetaminophen (Hydrocodone-Acetamin 5-325 mg) 1 Each Tablet, 1 TAB PO BID PRN for PAIN, (Reported) Allergies Coded Allergies: Sulfa (Sulfonamide Antibiotics) (Verified Allergy, Mild, Rash, 12/29/18) aspirin (Verified Adverse Reaction, Mild, GI Upset, 12/29/18) RONEN SHANKS DO Dec 30, 2018 04:10
[2018-12-30] MEDS ORDERED: LABETALOL HCL 100 MG/20 ML VIAL IV SCH (05:00)
--- NOTE | 2018-12-30 05:45 | ECGEPIP ---
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
[2018-12-30] MEDS ORDERED: ASPIRIN 300 MG SUPP PR SCH (09:00)
[2018-12-30] MEDS ORDERED: SITagliptin 50 MG TAB (JANUVIA) PO SCH (09:00)
[2018-12-30] MEDS ORDERED: fentaNYL 25 MCG/HR PATCH TD SCH (09:00)
[2018-12-30] MEDS ORDERED: POTASSIUM CHLORIDE 10 MEQ SR TABLET PO SCH (09:00)
[2018-12-30] MEDS ORDERED: CEPHALEXIN 250 MG CAP PO SCH (09:00)
[2018-12-30] MEDS ORDERED: HEPARIN SOD (PORCINE) 5000 UNITS/ML VIAL SC SCH (09:00)
[2018-12-30] MEDS ORDERED: LISINOPRIL 10 MG TAB PO SCH (09:00)
[2018-12-30] MEDS ORDERED: GABAPENTIN 300 MG CAP PO SCH (09:00)
--- NOTE | 2018-12-30 09:07 | REP ---
Portable chest x-ray: Sitting AP view. History: Altered mental status. No comparison view. Findings: EKG monitoring electrodes are seen. Heart is not felt to be enlarged. The aorta is calcific and slightly tortuous. Lungs are symmetrically aerated and clear. The pleural angles are sharp. There is diffuse osteopenia. Impression: No acute disease. Electronically Signed by Christian Steel MD 12/30/2018 08:59 A
[2018-12-30] MEDS ORDERED: ROSUVASTATIN 10 MG TAB (CRESTOR) PO SCH (21:00)
== END 2018-12-30 04:02 | disposition short-term general hospital (02) | DRG 65 ==
LOC: M ED 20:07 → M ED INP 12-30 00:22
PROVIDERS: ADMIT Internal Medicine; ATTEND Internal Medicine
DX: I63.9 Cerebral infarction, unspecified (principal); N39.0 Urinary tract infection, site not specified; I16.0 Hypertensive urgency; I10 Essential (primary) hypertension; E78.5 Hyperlipidemia, unspecified; E11.9 Type 2 diabetes mellitus without complications; Z79.899 Other long term (current) drug therapy; Z88.2 Allergy status to sulfonamides; Z88.6 Allergy status to analgesic agent

== ENCOUNTER 2020-06-27 11:05 | Observation (INO) | payer MEDICARE ==
[~2020-06-27] VITALS: Ht 157.5 cm; Wt 68.1 kg
[2020-06-27 01:45] VITALS: BP 176/87
[~2020-06-27 11:05] MED LIST: CEPHALEXIN 250MG CAPSULE PO SCH; CRES5TAB PO; EPINEPHrine INJ 1 MG/ML 1ML AMP IM PRN; FAMOTIDINE 20 MG TAB FT SCH; FENT1DIS14 TD; FURO20TA2 PO; GABA600T4 PO; HYDR-4571 PO; JANU100T PO; KEFL250C11 PO; LISI10TA22 PO; MYRB50TA PO; OMEP-221 PO; POTA10CA32 PO; SCOPOLAMINE 1MG TRANSDERMAL PATCH TOP SCH; VENL75CA47 PO; VENLAFAXINE 37.5 MG TAB FT SCH; diphenhydrAMINE 50MG/ML VIAL (J1200) IM PRN
[2020-06-27] MEDS ORDERED: NS 500 ML IV ONE (11:25)
[2020-06-27 11:40] LABS: BASO % 0.4 % (0.0-1.0); EOS # 0.2 10^3/uL (0.0-0.5); EOS % 1.8 % (0.0-3.0); HEMATOCRIT 47.8 % (36.0-47.0); LYMPH # 1.5 10^3/uL (1.5-5.0); LYMPH % 14.8 % (24.0-44.0); MEAN CORPUSCULAR HEMOGLOBIN 28.8 pg (27.0-33.0); MEAN CORPUSCULAR HGB CONC 31.4 g/dl (32.0-36.5); MEAN CORPUSCULAR VOLUME 91.9 fl (80.0-96.0); MONO # 0.6 10^3/uL (0.0-0.8); MONO % 5.6 % (2.0-8.0); NEUTROPHILS # 7.9 10^3/uL (1.5-8.5); NEUTROPHILS % 77.1 % (36.0-66.0); PLATELET COUNT, AUTOMATED 255 10^3/uL (150-450); WHITE BLOOD COUNT 10.2 10^3/uL (4.0-10.0)
[2020-06-27 11:56] LABS: INR 1.1; PROTHROMBIN TIME 14.4 SECONDS (12.5-14.3)
[2020-06-27 11:57] LABS: PARTIAL THROMBOPLASTIN TIME 29.4 SECONDS (24.2-38.5)
[2020-06-27 12:06] LABS: ALT/SGPT 20 U/L (12-78); BILIRUBIN,DIRECT 0.1 MG/DL (0.0-0.2); BILIRUBIN,TOTAL 0.6 MG/DL (0.2-1.0); BLOOD UREA NITROGEN 10 MG/DL (7-18); CALCIUM LEVEL 9.2 MG/DL (8.8-10.2); CARBON DIOXIDE LEVEL 29 MEQ/L (21-32); CHLORIDE LEVEL 104 MEQ/L (98-107); CREATININE FOR GFR 0.41 MG/DL (0.55-1.30); GLOMERULAR FILTRATION RATE > 60.0 (>32); GLUCOSE, FASTING 94 MG/DL (70-100); LIPASE 73 U/L (73-393); POTASSIUM SERUM 4.2 MEQ/L (3.5-5.1); SODIUM LEVEL 139 MEQ/L (136-145); TOTAL PROTEIN 7.7 GM/DL (6.4-8.2)
--- NOTE | 2020-06-27 12:13 | REP ---
INDICATION: aspiration COMPARISON: 12/29/2018 TECHNIQUE: Portable AP view of the chest FINDINGS: Mediastinum and cardiac silhouette are stable with atherosclerotic changes to the thoracic aorta again noted. Lung henderson demonstrate chronic changes although mild linear right basilar atelectasis and left lower lobe atelectasis cannot be differentiated from chronic change. No discrete focal consolidation. No effusion. No pneumothorax. Skeletal structures demonstrate osteopenia degenerative changes. IMPRESSION: Cannot differentiate between bibasilar atelectasis versus chronic scarring. <Electronically signed by Rik Olvera > 06/27/20 1214
[2020-06-27 12:32] LABS: RSV AMPLIFICATION NEGATIVE (NEGATIVE)
[2020-06-27] MEDS ORDERED: SCOP1PAT2 TOP (12:40)
[2020-06-27] MEDS ORDERED: FURO20TA2 FT (12:40)
[2020-06-27] MEDS ORDERED: RA M10TA FT (12:40)
[2020-06-27] MEDS ORDERED: APAP500T10 FT (12:40)
[2020-06-27] MEDS ORDERED: METO10TA2 FT (12:40)
[2020-06-27] MEDS ORDERED: ATOR1TAB21 FT (12:40)
[2020-06-27] MEDS ORDERED: ASPI81TA26 FT (12:40)
[2020-06-27] MEDS ORDERED: VENL37TA FT (12:40)
[2020-06-27] MEDS ORDERED: PRES10CA2 FT (12:40)
[2020-06-27] MEDS ORDERED: FAMO20TA FT (12:40)
[2020-06-27] MEDS ORDERED: CEPH250T FT (12:40)
[2020-06-27] MEDS ORDERED: PROP15DR3 OU (12:40)
[2020-06-27] MEDS ORDERED: POTA10TA17 FT (12:42)
[2020-06-27] MEDS: LR 1,000 ML IV SCH (12:58)
[2020-06-27] MEDS: ACETAMINOPHEN 500 MG TAB PO SCH ×2 (15:14→20:14)
--- NOTE | 2020-06-27 15:29 | HPEPDOC ---
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 This HPI is gathered from patient's daughter who was at bedside. According to the daughter, pt had pulled her G tube out on Friday and unable to tolerate PO due to dysphagia. In the ER, her stoma site is on the L abdominal region that's not patent and IR was consulted for G tube insertion under IR. Review of systems unable to obtain due to mentation Past medical history: Hyperlipidemia, diabetes, chronic back pain, chronic UTI, Brainstem stroke with deficits Past surgical history: Hysterectomy, bladder suspension, Past family history: Father from stroke, also positive family history of arthritis, hypertension and CAD social history: Never smoker, no alcohol use. 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 PHYSICAL EXAMINATION: VITAL SIGNS: See below GENERAL APPEARANCE: Awake and alert but not oriented, non verbal. No respiratory distress icterus, jaundice HEENT: Face is symmetric. Tongue is midline. Dry mucous membranes. No thyromegaly or cervical lymphadenopathy CARDIOVASCULAR: S1, S2 regular rate rhythm. Nondisplaced PMI LUNGS: unable to appreciate wheezing, rhonci rales ABDOMEN: Positive bowel sounds 4 quadrants, soft, non grimace on palpation EXTREMITIES: Trace lower extremity edema bilaterally NEUROLOGICAL: 2/5 strength throughout IMAGING: XR chest Portable AP view IMPRESSION: Cannot differentiate b/t bibasilar atelectasis vs chronic scarring LABS: see below ASSESSEMENT AND PLAN: This is a 85 -year-old female with past medical history of hypertension, hyperlipidemia, type 2 diabetes, brainstem stroke with deficits including incontinence of urine and bowel, dysphagia, presents to [facility] ER with chief complaints of feeding tube malfunction. Will be admitted under Hospitalist service and IR consultation for placement of the G tube #G tube malfunction/dislodgement - Pulled out on Friday- stoma is not patent on exam - IR (Dr. Acuna) consulted- G tube placement tomorrow at 3pm - CXR- Cannot differentiate b/t bibasilar atelectasis vs chronic scarring - PT/INR wnl - Held ASA #Dsyphagia - Speech and swallow eval - NPO #Hyperlipidemia - c/w home meds atorvastatin #Recurrent UTI - Patient is currently on Cephalexin from an outpatient to prevent UTIs - Will continue regimen and have outpatient follow up with PCP #DM2 - c/w home meds DVT prophylaxis teds and SCDs GI Prophylaxis Fluids LR at 80 mL per hour Diet: nothing by mouth CODE STATUS: DNR/DNI Dispo: IR for G tube replacement tomorrow at 3pm per Dr. Acuna (IR). Speech and swallow eval Home Medications Scheduled Acetaminophen (Acetaminophen) 500 Mg Tablet, 1,000 MG FT BID, (Reported) Aspirin (Aspirin EC) 81 Mg Tablet.dr, 81 MG FT DAILY, (Reported) Atorvastatin Calcium (Atorvastatin Calcium) 20 Mg Tablet, 20 MG FT QHS, (Reported) Cephalexin (Cephalexin) 250 Mg Tablet, 250 MG FT DAILY, (Reported) Famotidine (Famotidine) 20 Mg Tablet, 20 MG FT DAILY, (Reported) Melatonin (Melatonin) 10 Mg Tablet, 10 MG FT QHS, (Reported) Metoclopramide HCl (Metoclopramide HCl) 10 Mg Tablet, 10 MG FT TID, (Reported) Potassium Chloride (Potassium Chloride) 10 Meq Tab.er.prt, 20 MEQ FT DAILY, (Reported) Propylene Glycol/Peg 400 (Lubricant Eye Drops) 15 Ml Drops, 1 DROP OU BID, (Reported) Scopolamine (Transderm-Scop) 1 Each Patch.td.3, 1.5 MG TOP Q72H, (Reported) APPLIED BEHIND RIGHT EAR Venlafaxine HCl (Venlafaxine HCl) 37.5 Mg Tablet, 37.5 MG FT DAILY, (Reported) Vit C/E/Zn/Coppr/Lutein/Zeaxan (Preservision Areds 2 Softgel) 1 Each Capsule, 1 CAP FT DAILY, (Reported) Scheduled PRN Furosemide (Furosemide) 20 Mg Tablet, 20 MG FT DAILY PRN for EDEMA, (Reported) Allergies Coded Allergies: Sulfa (Sulfonamide Antibiotics) (Verified Allergy, Mild, Rash, 12/29/18) A-FIB/CHADSVASC A-FIB History Current/History of A-Fib/PAF?: No Current PO Anticoag Therapy: No Vital Signs Vital Signs Date Time Temp Pulse Resp B/P (MAP) Pulse Ox O2 Delivery O2 Flow Rate FiO2 06/27/20 12:03 69 96 06/27/20 12:01 20 165/70 (101) Room Air 06/27/20 11:24 97.4 Laboratory Data Labs 24H Laboratory Tests 2 06/27/20 11:21: Immature Granulocyte % (Auto) 0.3, Neutrophils (%) (Auto) 77.1H, Lymphocytes (%) (Auto) 14.8L, Monocytes (%) (Auto) 5.6, Eosinophils (%) (Auto) 1.8, Basophils (%) (Auto) 0.4, Neutrophils # (Auto) 7.9, Lymphocytes # (Auto) 1.5, Monocytes # (Auto) 0.6, Eosinophils # (Auto) 0.2, Basophils # (Auto) 0.0, Nucleated Red Blood Cells % (auto) 0.0, Prothrombin Time 14.4H, Prothromb Time International Ratio 1.10, Activated Partial Thromboplast Time 29.4, Anion Gap 6L, Glomerular Filtration Rate > 60.0, Calcium Level 9.2, Total Bilirubin 0.6, Direct Bilirubin 0.1, Aspartate Amino Transf (AST/SGOT) 21, Alanine Aminotransferase (ALT/SGPT) 20, Alkaline Phosphatase 101, Total Protein 7.7, Albumin 3.0L, Albumin/Globulin Ratio 0.6L, Lipase 73 06/27/20 11:30: CBC/BMP Laboratory Tests 06/27/20 11:21 Plan / VTE VTE Prophylaxis Ordered?: Yes GME ATTESTATION GME ATTESTATION My faculty preceptor for this patient encounter was physically present during the encounter and was fully available. All aspects of the patient interview, examination, medical decision making process, and medical care plan development were reviewed and approved by the faculty preceptor. The faculty preceptor is aware and concurs with the plan as stated in the body of this note and will attest to such by his/her cosignature. ATTENDING NOTE I, Chun Jose, have independently examined this patient and performed my own physical exam, as well as reviewed the documentation and edited where necessary. I have discussed in detail with the resident / student the findings and plan of treatment as documented by the resident / student and edited their note. I agree with their findings and treatment plan and have edited their documentation. I will continue to follow the patient during this hospital stay. Michaela Licea DO Jun 27, 2020 12:31 CHUN JOSE MD Jun 27, 2020 16:41
[2020-06-27] MEDS ORDERED: METOCLOPRAMIDE 10 MG TAB PO SCH (16:00)
[2020-06-27] MEDS ORDERED: COVID-19 VAC,AD26(JANSSEN)/PF 0.5ML SYRINGE (EUA) IM ONE (17:00)
[2020-06-27] MEDS ORDERED: ATORVASTATIN 20 MG TAB PO SCH (21:00)
[2020-06-27 22:00] VITALS: BP 147/85
[2020-06-28] MEDS: LR 1,000 ML IV SCH (00:17)
[2020-06-28 06:00] VITALS: BP 144/80
[2020-06-28 06:13] LABS: HEMATOCRIT 43.8 % (36.0-47.0); HEMOGLOBIN 13.9 g/dl (12.0-15.5); MEAN CORPUSCULAR HEMOGLOBIN 29.1 pg (27.0-33.0); MEAN CORPUSCULAR HGB CONC 31.7 g/dl (32.0-36.5); MEAN CORPUSCULAR VOLUME 91.8 fl (80.0-96.0); PLATELET COUNT, AUTOMATED 223 10^3/uL (150-450); RED BLOOD COUNT 4.77 10^6/uL (4.00-5.40); WHITE BLOOD COUNT 8.3 10^3/uL (4.0-10.0)
[2020-06-28 06:38] LABS: ALBUMIN 2.6 GM/DL (3.2-5.2); ALT/SGPT 17 U/L (12-78); BILIRUBIN,TOTAL 0.6 MG/DL (0.2-1.0); BLOOD UREA NITROGEN 6 MG/DL (7-18); CALCIUM LEVEL 8.5 MG/DL (8.8-10.2); CARBON DIOXIDE LEVEL 29 MEQ/L (21-32); CHLORIDE LEVEL 106 MEQ/L (98-107); CREATININE FOR GFR 0.28 MG/DL (0.55-1.30); GLOMERULAR FILTRATION RATE > 60.0 (>32); GLUCOSE, FASTING 81 MG/DL (70-100); POTASSIUM SERUM 3.3 MEQ/L (3.5-5.1); SODIUM LEVEL 139 MEQ/L (136-145)
[2020-06-28] MEDS ORDERED: KCL 40MEQ in NS 1000ML 1,000 ML IV SCH (07:25)
[2020-06-28] MEDS: ACETAMINOPHEN 500 MG TAB PO SCH (08:05)
[2020-06-28 08:06] VITALS: BP 168/92
[2020-06-28] MEDS ORDERED: NITROGLYCERIN 0.2 MG/HR PATCH TD SCH (09:00)
--- NOTE | 2020-06-28 09:51 | DS.PDOC ---
Discharge Summary General Date of Admission Jun 27, 2020 at 12:22 Date of Discharge 06/28/2020 Discharge Summary PROCEDURES PERFORMED DURING STAY: [None]. ADMITTING DIAGNOSES: 1. G-tube malfunction/dislodgment DISCHARGE DIAGNOSES: Reinsertion of G-tube COMPLICATIONS/CHIEF COMPLAINT: Complication Of Feeding Tube. 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 This HPI is gathered from patient's daughter who was at bedside. According to the daughter, pt had pulled her G tube out on Friday and unable to tolerate PO due to dysphagia. In the ER, her stoma site is on the L abdominal region that's not patent and IR was consulted for G tube insertion under IR. Review of systems unable to obtain due to mentation HOSPITAL COURSE: Hospital course: This is a 85 -year-old female with past medical history of hypertension, hyperlipidemia, type 2 diabetes, brainstem stroke with deficits including incontinence of urine and bowel, dysphagia, presents to [facility] ER with chief complaints of feeding tube malfunction. Interventional radiology performed G-tube insertion. She tolerated procedure welL #G tube malfunction/dislodgement - Pulled out on Friday- stoma is not patent on exam - IR (Dr. Acuna) consulted- G tube placement today (06/28/2020) - CXR- Cannot differentiate b/t bibasilar atelectasis vs chronic scarring - PT/INR wnl - Held ASA #Dsyphagia - NPO - G tube placement #Hyperlipidemia - c/w home meds atorvastatin #Recurrent UTI - Patient is currently on Cephalexin from an outpatient to prevent UTIs - Will continue regimen and have outpatient follow up with PCP #DM2 - c/w home meds DVT prophylaxis teds and SCDs GI Prophylaxis CODE STATUS: DNR/DNI DISCHARGE MEDICATIONS: Please see below. ALLERGIES: Please see below. PHYSICAL EXAMINATION ON DISCHARGE: VITAL SIGNS: Please see below. LABORATORY DATA: Please see below. IMAGING: PROGNOSIS: ACTIVITY: [As tolerated]. DIET: DISCHARGE PLAN: Follow up with PCP within 7 days Follow up with IR within 7 days Remain compliant with treatment plan and medications Return to the ER if you experience any problems DISPOSITION: Home with services DISCHARGE CONDITION: [Stable]. TIME SPENT ON DISCHARGE: 35 minutes. Vital Signs/I&Os Vital Signs Date Time Temp Pulse Resp B/P (MAP) Pulse Ox O2 Delivery O2 Flow Rate FiO2 06/28/20 08:06 168/92 06/28/20 06:00 98.5 71 18 97 Room Air I&O- Last 24 Hours up to 6 AM 06/28/20 06:00 Intake Total 940 ml Balance 940 ml Laboratory Data Labs 24H Laboratory Tests 2 06/27/20 11:21: Immature Granulocyte % (Auto) 0.3, Neutrophils (%) (Auto) 77.1H, Lymphocytes (%) (Auto) 14.8L, Monocytes (%) (Auto) 5.6, Eosinophils (%) (Auto) 1.8, Basophils (%) (Auto) 0.4, Neutrophils # (Auto) 7.9, Lymphocytes # (Auto) 1.5, Monocytes # (Auto) 0.6, Eosinophils # (Auto) 0.2, Basophils # (Auto) 0.0, Nucleated Red Blood Cells % (auto) 0.0, Prothrombin Time 14.4H, Prothromb Time International Ratio 1.10, Activated Partial Thromboplast Time 29.4, Anion Gap 6L, Glomerular Filtration Rate > 60.0, Calcium Level 9.2, Total Bilirubin 0.6, Direct Bilirubin 0.1, Aspartate Amino Transf (AST/SGOT) 21, Alanine Aminotransferase (ALT/SGPT) 20, Alkaline Phosphatase 101, Total Protein 7.7, Albumin 3.0L, Albumin/Globulin Ratio 0.6L, Lipase 73 06/27/20 11:30: Coronavirus (COVID-19)(PCR) NEGATIVE, Influenza Type A (RT-PCR) NEGATIVE, Influenza Type B (RT-PCR) NEGATIVE, Respiratory Syncytial Virus (PCR) NEGATIVE 06/28/20 05:51: Nucleated Red Blood Cells % (auto) 0.0, Anion Gap 4L, Glomerular Filtration Rate > 60.0, Calcium Level 8.5L, Total Bilirubin 0.6, Aspartate Amino Transf (AST/SGOT) 16, Alanine Aminotransferase (ALT/SGPT) 17, Alkaline Phosphatase 89, Total Protein 7.0, Albumin 2.6L, Albumin/Globulin Ratio 0.6L CBC/BMP Laboratory Tests 06/27/20 11:21 06/28/20 05:51 Discharge Medications Scheduled Acetaminophen (Acetaminophen) 500 Mg Tablet, 1,000 MG FT BID, (Reported) Aspirin (Aspirin EC) 81 Mg Tablet.dr, 81 MG FT DAILY, (Reported) Atorvastatin Calcium (Atorvastatin Calcium) 20 Mg Tablet, 20 MG FT QHS, (Reported) Cephalexin (Cephalexin) 250 Mg Tablet, 250 MG FT DAILY, (Reported) Famotidine (Famotidine) 20 Mg Tablet, 20 MG FT DAILY, (Reported) Melatonin (Melatonin) 10 Mg Tablet, 10 MG FT QHS, (Reported) Metoclopramide HCl (Metoclopramide HCl) 10 Mg Tablet, 10 MG FT TID, (Reported) Potassium Chloride (Potassium Chloride) 10 Meq Tab.er.prt, 20 MEQ FT DAILY, (Reported) Propylene Glycol/Peg 400 (Lubricant Eye Drops) 15 Ml Drops, 1 DROP OU BID, (Reported) Scopolamine (Transderm-Scop) 1 Each Patch.td.3, 1.5 MG TOP Q72H, (Reported) APPLIED BEHIND RIGHT EAR Venlafaxine HCl (Venlafaxine HCl) 37.5 Mg Tablet, 37.5 MG FT DAILY, (Reported) Vit C/E/Zn/Coppr/Lutein/Zeaxan (Preservision Areds 2 Softgel) 1 Each Capsule, 1 CAP FT DAILY, (Reported) Scheduled PRN Furosemide (Furosemide) 20 Mg Tablet, 20 MG FT DAILY PRN for EDEMA, (Reported) Allergies Coded Allergies: Sulfa (Sulfonamide Antibiotics) (Verified Allergy, Mild, Rash, 12/29/18) GME ATTESTATION GME ATTESTATION My faculty preceptor for this patient encounter was physically present during the encounter and was fully available. All aspects of the patient interview, examination, medical decision making process, and medical care plan development were reviewed and approved by the faculty preceptor. The faculty preceptor is aware and concurs with the plan as stated in the body of this note and will attest to such by his/her cosignature. ATTENDING NOTE I, Chun Jose, have independently examined this patient and performed my own physical exam, as well as reviewed the documentation and edited where necessary. I have discussed in detail with the resident / student the findings and plan of treatment as documented by the resident / student and edited their note. I agree with their findings and treatment plan and have edited their documen tation. I will continue to follow the patient during this hospital stay. Patient improved faster than expected Time spent on discharge 35 minutes Michaela Licea DO Jun 28, 2020 08:26 CHUN JOSE MD Jun 28, 2020 10:31
[2020-06-28 14:00] VITALS: BP 114/81
[2020-06-28] MEDS ORDERED: ceFAZolin 2 GM/D5W 50 ML IV BAG (J0690 PER 500MG) As Ordered ONE (17:33)
[2020-06-28] MEDS ORDERED: ISOVUE-300 61% 50ML VIAL As Ordered ONE (17:38)
[2020-06-28] MEDS ORDERED: LIDOCAINE 1% MDV 20ML VIAL As Ordered ONE (17:38)
[2020-06-28 18:50] VITALS: BP 150/84
[2020-06-28] MEDS ORDERED: **NOTE PATIENT COMMENT** MISC XX SCH (21:00)
--- NOTE | 2020-06-29 12:35 | POST-OPPD ---
Postoperative Procedure Note Date Of Procedure: Jun 28, 2020 Time Of Procedure: 18:22 IR Gastrostomy Replacement Gastrostomy catheter replacement with fluoroscopic guidance Clinical Information:Prior stroke. Dysphagia. G-tube dependent. G-tube fell out. Physician: Dr. Acuna. Procedure: The patient's daughter was advised of the benefits, risks, and alternatives of the procedure and informed consent was obtained. A time out was performed with verification of the patient's name, MRN, site of procedure, and type of procedure to be performed. The patient was positioned in the supine position on the angiographic table. The site was prepped and draped in the usual sterile fashion. Moderate sedation was not required. The physician spent 30 minutes of continuous [id number] time with the patient. A pacu nurse radiograph reveals no G-tube. The gastrostomy tract was probed with a Glidewire under fluoroscopic guidance. A Kumpe catheter was advanced over the wire, under fluoroscopy guidance. The wire was removed. Injection of contrast through the catheter confirmed successful catheterization of the stomach. An 035 wire was advanced through the catheter into the stomach. The catheter was removed over the wire. A new 18 Lao gastrostomy catheter was advanced over the wire, under fluoroscopy guidance, into the stomach. Injection of contrast through the gastrostomy catheter confirms location within the stomach. The retention balloon was insufflated and retracted to the anterior stomach wall. The bumper was advanced down and secured to the anterior abdominal wall. A sterile dressing was applied to the site. The patient tolerated the procedure well and was returned to the PRU in stable condition. EBL: < 5 mL. Complications:None. Conclusion: 1. Successful replacement of a 18 F gastrostomy catheter. 2. G-tube ready to use. Thank you for this referral. ARJUN ACUNA MD Jun 29, 2020 12:35
== END 2020-06-28 19:38 | disposition home or self-care (01) ==
LOC: EDBD 11:05 → EDSEX 11:05 → M ED 11:05 → INTOOBSV 12:22 → M ED INP 12:22 → ENRESERV 12:41 → M MSPAV 14:09
PROVIDERS: ADMIT Internal Medicine; ATTEND Internal Medicine
DX: T85.528A Displacement of other gastrointestinal prosthetic devices, implants and grafts, initial encounter (principal); I69.154 Hemiplegia and hemiparesis following nontraumatic intracerebral hemorrhage affecting left non-dominant side; I69.121 Dysphasia following nontraumatic intracerebral hemorrhage; E11.9 Type 2 diabetes mellitus without complications; E78.5 Hyperlipidemia, unspecified; I10 Essential (primary) hypertension; M54.9 Dorsalgia, unspecified; G89.29 Other chronic pain; N39.0 Urinary tract infection, site not specified; Z90.710 Acquired absence of both cervix and uterus; Z79.82 Long term (current) use of aspirin; Z79.899 Other long term (current) drug therapy
CPT/HCPCS: 36415; 49450; 71045; 80053; 83690; 85025; 85027; 85610; 85730; 87631; 93041; 96360; 96361; 99285; C1729; C1769; G0378; J0690; Q9967

== ENCOUNTER 2022-11-25 13:52 | Observation (INO) | payer MEDICARE, MEDICAID ==
[~2022-11-25] VITALS: Ht 160 cm; Wt 75.0 kg
[~2022-11-25 13:52] MED LIST changes: +APAP500T10 FT; +ASPI81TA26 FT; +ATOR1TAB21 FT; +CEPH250T FT; -CEPHALEXIN 250MG CAPSULE PO SCH; -EPINEPHrine INJ 1 MG/ML 1ML AMP IM PRN; +FAMO20TA FT; -FAMOTIDINE 20 MG TAB FT SCH; +FURO20TA2 FT; +METO10TA2 FT; -OMEP-221 PO; +OMEP40CA5 PO; +POTA-150 FT; -POTA10CA32 PO; +POTA10CA60 PO; +PRES10CA2 FT; +PROP15DR3 OU; +RA M10TA FT; -SCOPOLAMINE 1MG TRANSDERMAL PATCH TOP SCH; +TRAN1DIS4 TOP; +VENL37TA FT; -VENLAFAXINE 37.5 MG TAB FT SCH; -diphenhydrAMINE 50MG/ML VIAL (J1200) IM PRN
[2022-11-25 16:27] LABS: BASO % 0.5 % (0.0-1.0); EOS # 0.2 10^3/uL (0.0-0.5); EOS % 2.8 % (0.0-3.0); HEMATOCRIT 46.2 % (36.0-47.0); HEMOGLOBIN 14.3 g/dl (12.0-15.5); LYMPH # 0.7 10^3/uL (1.5-5.0); LYMPH % 8.1 % (24.0-44.0); MEAN CORPUSCULAR HEMOGLOBIN 29.3 pg (27.0-33.0); MEAN CORPUSCULAR VOLUME 94.7 fl (80.0-96.0); MONO # 0.7 10^3/uL (0.0-0.8); MONO % 7.9 % (2.0-8.0); NEUTROPHILS % 80.4 % (36.0-66.0); PLATELET COUNT, AUTOMATED 228 10^3/uL (150-450); RED BLOOD COUNT 4.88 10^6/uL (4.00-5.40); WHITE BLOOD COUNT 8.7 10^3/uL (4.0-10.0)
[2022-11-25 18:03] LABS: BLOOD UREA NITROGEN 15 MG/DL (9-23); CALCIUM LEVEL 8.1 MG/DL (8.3-10.6); CARBON DIOXIDE LEVEL 32 MMOL/L (20-31); CHLORIDE LEVEL 104 MMOL/L (98-107); CREATININE FOR GFR 0.28 MG/DL (0.55-1.30); GLOMERULAR FILTRATION RATE > 60.0 (>32); GLUCOSE, FASTING 99 MG/DL (74-106); POTASSIUM SERUM 4.2 MMOL/L (3.5-5.1); SODIUM LEVEL 140 MMOL/L (136-145)
[2022-11-25] MEDS ORDERED: ACETAMINOPHEN TAB 650MG DOSE (2X325MG) PEG PRN (20:10)
[2022-11-25] MEDS: NS 1,000 ML IV SCH (20:23)
[2022-11-25] MEDS ORDERED: cefTRIAXone SOD 1 GM in D5W MINI-BAG PLUS 50 ML IV SCH (21:00)
[2022-11-26 00:30] VITALS: BP 148/77; TEMP 97.9; O2SAT 97
[2022-11-26] MEDS ORDERED: TRAZ-252 FT (02:39)
[2022-11-26] MEDS ORDERED: ASPI-655 FT (02:39)
[2022-11-26] MEDS ORDERED: CVS100LI4 FT (02:39)
[2022-11-26] MEDS ORDERED: BENA25TA5 PO (02:39)
[2022-11-26] MEDS ORDERED: HOME MED LIST COMPLETE! XX SCH (02:40)
[2022-11-26] MEDS ORDERED: guaiFENesin SYRUP 200MG 10ML UDC GT PRN (03:50)
[2022-11-26] MEDS: NS 1,000 ML IV SCH (04:55)
[2022-11-26 05:38] VITALS: BP 145/77; TEMP 97.9; O2SAT 95
[2022-11-26 07:03] LABS: HEMATOCRIT 41.9 % (36.0-47.0); HEMOGLOBIN 13.1 g/dl (12.0-15.5); MEAN CORPUSCULAR HEMOGLOBIN 29.2 pg (27.0-33.0); MEAN CORPUSCULAR HGB CONC 31.3 g/dl (32.0-36.5); MEAN CORPUSCULAR VOLUME 93.3 fl (80.0-96.0); PLATELET COUNT, AUTOMATED 224 10^3/uL (150-450); RED BLOOD COUNT 4.49 10^6/uL (4.00-5.40); WHITE BLOOD COUNT 9.5 10^3/uL (4.0-10.0)
[2022-11-26 07:28] LABS: BLOOD UREA NITROGEN 14 MG/DL (9-23); CALCIUM LEVEL 7.4 MG/DL (8.3-10.6); CARBON DIOXIDE LEVEL 27 MMOL/L (20-31); CHLORIDE LEVEL 108 MMOL/L (98-107); CREATININE FOR GFR 0.25 MG/DL (0.55-1.30); GLOMERULAR FILTRATION RATE > 60.0 (>32); GLUCOSE, FASTING 104 MG/DL (74-106); MAGNESIUM LEVEL 1.8 MG/DL (1.8-2.4); POTASSIUM SERUM 5.1 MMOL/L (3.5-5.1); SODIUM LEVEL 142 MMOL/L (136-145)
[2022-11-26] MEDS ORDERED: ENOXAPARIN 40MG/0.4ML SYRINGE (J1650 PER 10MG) SC SCH (09:00)
[2022-11-26] MEDS ORDERED: ASPIRIN 81MG CHEW TABLET FT SCH (09:00)
[2022-11-26] MEDS ORDERED: VENLAFAXINE 37.5 MG TAB FT SCH (09:00)
[2022-11-26] MEDS ORDERED: POTASSIUM CHLORIDE 10MEQ SR TABLET PO SCH (09:00)
[2022-11-26] MEDS ORDERED: FAMOTIDINE 20 MG TAB FT SCH (09:00)
[2022-11-26] MEDS ORDERED: FUROSEMIDE 20 MG TAB GT SCH (09:00)
[2022-11-26] MEDS: METOCLOPRAMIDE 10MG TAB GT SCH ×2 (09:47→16:00)
[2022-11-26 14:00] VITALS: BP 138/78; TEMP 97.7; O2SAT 94
[2022-11-26] MEDS ORDERED: BISACODYL 10MG SUPP PR PRN (18:25)
[2022-11-26] MEDS ORDERED: ATROPINE SULFATE 1% OPHTH SOLN 2ML BTL SL PRN (18:25)
[2022-11-26] MEDS: MORPHINE 2 MG/ML 1ML VIAL IV PRN ×2 (18:35→21:07)
[2022-11-26] MEDS ORDERED: RAMELTEON 8 MG TAB (ROZEREM) GT SCH (21:00)
[2022-11-26] MEDS ORDERED: ATORVASTATIN 20 MG TAB GT SCH (21:00)
[2022-11-26] MEDS ORDERED: traZODone 50 MG TAB FT SCH (21:00)
[2022-11-26] MEDS: SCOPOLAMINE 1MG TRANSDERMAL PATCH TOP PRN (21:07)
[2022-11-27] MEDS: MORPHINE 2 MG/ML 1ML VIAL IV PRN ×2 (00:24→11:10)
[2022-11-27] MEDS: LORazepam 2 MG/ML 1ML VIAL IV PRN ×3 (11:27→22:22)
[2022-11-27] MEDS: MORPHINE 10MG/0.5ML ORAL CONCENTRATE SOLUTION U/D SL PRN ×3 (14:26→21:42)
[2022-11-28] MEDS: MORPHINE 10MG/0.5ML ORAL CONCENTRATE SOLUTION U/D SL PRN ×4 (09:23→22:09)
[2022-11-28] MEDS: LORazepam 2 MG/ML 1ML VIAL IV PRN ×2 (14:56→22:09)
[2022-11-29] MEDS: LORazepam 2 MG/ML 1ML VIAL IV PRN ×2 (00:22→18:36)
[2022-11-29] MEDS: MORPHINE 10MG/0.5ML ORAL CONCENTRATE SOLUTION U/D SL PRN ×3 (00:22→18:25)
[2022-11-30] MEDS: LORazepam 2 MG/ML 1ML VIAL IV PRN ×3 (04:08→22:44)
[2022-11-30] MEDS: MORPHINE 10MG/0.5ML ORAL CONCENTRATE SOLUTION U/D SL PRN ×3 (04:08→22:45)
[2022-12-01] MEDS: MORPHINE 10MG/0.5ML ORAL CONCENTRATE SOLUTION U/D SL PRN (10:20)
[2022-12-02] MEDS: MORPHINE 10MG/0.5ML ORAL CONCENTRATE SOLUTION U/D SL PRN ×2 (05:55→18:24)
[2022-12-03] MEDS: MORPHINE 10MG/0.5ML ORAL CONCENTRATE SOLUTION U/D SL PRN (10:41)
[2022-12-04] MEDS: MORPHINE 10MG/0.5ML ORAL CONCENTRATE SOLUTION U/D SL PRN ×4 (01:14→14:04)
[2022-12-04] MEDS: LORazepam 2 MG/ML 1ML VIAL IV PRN (09:41)
[2022-12-04] MEDS: LORazepam 1 MG TAB PO PRN ×2 (11:56→14:04)
[2022-12-04] MEDS: SCOPOLAMINE 1MG TRANSDERMAL PATCH TOP PRN (16:03)
[2022-12-05] MEDS: MORPHINE 10MG/0.5ML ORAL CONCENTRATE SOLUTION U/D SL PRN ×6 (07:34→18:56)
[2022-12-05] MEDS: LORazepam 1 MG TAB PO PRN ×6 (07:34→18:56)
== END 2022-12-06 12:10 | disposition expired ==
LOC: M ED 13:52 → INTOOBSV 20:10 → M ED INP 20:10 → M MS5PR 20:10
PROVIDERS: ADMIT Internal Medicine; ATTEND Internal Medicine
DX: N39.0 Urinary tract infection, site not specified (principal); B96.5 Pseudomonas (aeruginosa) (mallei) (pseudomallei) as the cause of diseases classified elsewhere; B96.89 Other specified bacterial agents as the cause of diseases classified elsewhere; B95.2 Enterococcus as the cause of diseases classified elsewhere; F01.C0 Vascular dementia, severe, without behavioral disturbance, psychotic disturbance, mood disturbance, and anxiety; R13.10 Dysphagia, unspecified; R62.7 Adult failure to thrive; R54 Age-related physical debility; I10 Essential (primary) hypertension; I67.82 Cerebral ischemia; G31.1 Senile degeneration of brain, not elsewhere classified; Z86.73 Personal history of transient ischemic attack (TIA), and cerebral infarction without residual deficits; F32.A Depression, unspecified; F41.9 Anxiety disorder, unspecified; K21.9 Gastro-esophageal reflux disease without esophagitis; E78.5 Hyperlipidemia, unspecified; Z85.3 Personal history of malignant neoplasm of breast; Z93.1 Gastrostomy status; Z88.2 Allergy status to sulfonamides; Z79.899 Other long term (current) drug therapy; Z79.82 Long term (current) use of aspirin; Z79.2 Long term (current) use of antibiotics; Z51.5 Encounter for palliative care
CPT/HCPCS: 36415; 51701; 70450; 71045; 80048; 81001; 83735; 85025; 85027; 87088; 87186; 87635; 96361; 96365; 96372; 96375; 96376; 99285; G0378; J0696; J1650; J2060